=== PATIENT | female | born 1970 | race African-American/Black ===

== ENCOUNTER 2017-02-08 14:32 | Emergency (ER) | payer MEDICAID, OTHER ==
[~2017-02-08] VITALS: Ht 175.3 cm; Wt 89.1 kg
[~2017-02-08 14:32] MED LIST: ADVAI100I PO; ALBU8I INH; LEXA10TA PO; MONT10TA2 PO; PRED20 PO
[2017-02-08 14:35] VITALS: BP 130/70; PULSE 80; RESP 20; TEMP 99; O2SAT 100
--- NOTE | 2017-02-08 15:03 | PD ---
Physical Exam Time Seen by Provider: 15:01 Narrative 46 y/o female here with shortness of breath, dizziness since last night. hx of asthma, endorses cough. vss. Seen at triage desk. Awaiting bed placement. Data Data Last Documented VS Vital Signs Date Time Temp Pulse Resp B/P Pulse Ox O2 Delivery O2 Flow Rate FiO2 02/08/17 14:35 99.0 80 20 130/70 100 Room Air MDM Medical Record Reviewed: Yes Supervised Visit with TORITO: Niles Velásquez February 08, 2017 15:03
== END 2017-02-08 19:05 | disposition left against medical advice (07) ==
LOC: NED 14:32
DX: R06.02 Shortness of breath (principal); R42 Dizziness and giddiness; R05 Cough; Z87.09 Personal history of other diseases of the respiratory system
CPT/HCPCS: 99284

== ENCOUNTER 2017-11-12 08:13 | Emergency (ER) | payer MEDICAID ==
[~2017-11-12] VITALS: Ht 175.3 cm; Wt 79.5 kg
[2017-11-12 08:18] VITALS: BP 134/79; PULSE 94; RESP 20; TEMP 98.3; O2SAT 100
[2017-11-12] MEDS ORDERED: VENTAER INH (08:36)
--- NOTE | 2017-11-12 08:38 | PD ---
HPI Chief Complaint: Cold / Flu Symptoms Time Seen by Provider: 08:24 Travel History International Travel<30 days: No Contact w/Intl Traveler<30days: No Traveled to known affect area: No History of Present Illness HPI 47-year-old -Armenian female presents emergency department 3 day history of flulike symptoms with generalized body aches, hot and cold, and intermittent diarrhea. Patient denies significant cough but has had sinus congestion and headache. Patient is unsure of specific complaints of fever. She has been taking some [id number] Imodium and linda brigida for her abdominal symptoms. She has had no nausea or vomiting. She denies abdominal pain or urinary symptoms at this time. She has no known drug allergies. PFSH Past Medical History Hx Anticoagulant Therapy: No Asthma: Yes Anxiety: Yes Depression: Yes Cardiovascular Problems: No Chemotherapy: No Cerebrovascular Accident: No Diabetes: No Diminished Hearing: No Psychiatric: Yes Respiratory: Yes ?: Not LMP: SEPTEMBER 2017 Para: 3 : 1 Past Surgical History Hysterectomy: No Tonsillectomy: Yes (ADENOIDS) Other Surgery: Yes (TUMORS REMOVED UNDER ARMPITS) Social History Alcohol Use: Yes (OCCASSIONAL) Tobacco Use: No Substance Use: Yes (MARIJUANA) Allergies-Medications (Allergen,Severity, Reaction): Coded Allergies: No Known Allergies (Unverified Adverse Reaction, Unknown, 11/12/17) Reported Meds & Prescriptions Reported Meds & Active Scripts Active Reported Ventolin Hfa 18 GM Inh (Albuterol Sulfate) 90 Mcg/Act Aer 2 Puff INH Q4-6H PRN Review of Systems Except as stated in HPI: all other systems reviewed are Neg General / Constitutional: Positive: Chills, No: Fever Eyes: No: Visual changes HENT: Positive: Headaches, Rhinitis, Rhinorrhea, Congestion, No: Vertigo, Lightheadedness, Sore Throat, Nosebleed, Neck Stiffness, Neck Pain, Dental Difficulties, Earache Cardiovascular: No: Chest Pain or Discomfort Respiratory: No: Cough, Shortness of Breath, Wheezing Gastrointestinal: Positive: Diarrhea, No: Nausea, Vomiting, Abdominal Pain Genitourinary: No: Dysuria Musculoskeletal: Positive: Myalgias, No: Pain Skin: No Rash Neurologic: No: Weakness Psychiatric: No: Depression Endocrine: No: Polydipsia Hematologic/Lymphatic: No: Easy Bruising Physical Exam Narrative GENERAL: Patient appears in no obvious distress. SKIN: Warm and dry. Normal color. Normal turgor. HEAD: Atraumatic. Normocephalic. EYES: Pupils equal and round. No scleral icterus. No injection or drainage. ENT: No nasal bleeding or discharge. Mucous membranes pink and moist. TMs are clear bilaterally. No significant sinus tenderness to percussion or palpation pharynx is unremarkable. Airways patent. NECK: Trachea midline. Supple and nontender. CARDIOVASCULAR: Regular rate and rhythm. RESPIRATORY: No accessory muscle use. Clear to auscultation. Breath sounds equal bilaterally. GASTROINTESTINAL: Abdomen soft, non-tender, nondistended. Hepatic and splenic margins not palpable. MUSCULOSKELETAL: Extremities without clubbing, cyanosis, or edema. No obvious deformities. NEUROLOGICAL: Awake and alert. No obvious cranial nerve deficits. Motor grossly within normal limits. Five out of 5 muscle strength in the arms and legs. Normal speech. PSYCHIATRIC: Appropriate mood and affect; insight and judgment normal. Data Data Last Documented VS Vital Signs Date Time Temp Pulse Resp B/P (MAP) Pulse Ox O2 Delivery O2 Flow Rate FiO2 11/12/17 08:18 98.3 94 20 134/79 (97) 100 Room Air Orders Orders Influenzae A/B Antigen (11/12/17 08:26) MDM Medical Decision Making Medical Screen Exam Complete: Yes Emergency Medical Condition: Yes Differential Diagnosis Viral syndrome. Upper respiratory infection. Influenza. Gastroenteritis. Narrative Course Patient is medically stable at time of exam. Rapid influenza sent to the lab. Rapid influenza is negative. Patient is felt to have a resolving gastroenteritis. Patient is felt to be able to return to work tomorrow Patient should rest, push fluids, antidiarrheals as needed and follow if worsening Diagnosis Primary Impression: Gastroenteritis and colitis, viral Referrals: Primary Care Physician Patient Instructions: Acute Diarrhea (ED), General Instructions Departure Forms: Work Release Enter return to work date: Nov 13, 2017 Additional Instructions: Rapid influenza is negative. Patient is felt to have a resolving gastroenteritis. Patient is felt to be able to return to work tomorrow Patient should rest, push fluids, antidiarrheals as needed and follow if worsening Med/Other Pt SpecificInfo: No Meds Exist/No RX given Disposition: DISCHARGE HOME Condition: Stable Byron Kent Nov 12, 2017 08:38
== END 2017-11-12 09:17 | disposition home or self-care (01) ==
LOC: NEPD 08:13
DX: A08.4 Viral intestinal infection, unspecified (principal); J45.909 Unspecified asthma, uncomplicated; F32.9 Major depressive disorder, single episode, unspecified
CPT/HCPCS: 87804; 99283

== ENCOUNTER 2017-12-12 13:39 | Emergency (ER) | payer MEDICAID ==
[~2017-12-12] VITALS: Ht 175.3 cm; Wt 77.0 kg
[~2017-12-12 13:39] MED LIST changes: -ADVAI100I PO; -ALBU8I INH; -LEXA10TA PO; -MONT10TA2 PO; -PRED20 PO; +VENTAER INH
[2017-12-12 14:06] VITALS: BP 123/67; PULSE 102; RESP 25; TEMP 98.5; O2SAT 100
--- NOTE | 2017-12-12 15:35 | PD ---
HPI Chief Complaint: Respiratory Distress Time Seen by Provider: 15:35 Travel History International Travel<30 days: No Contact w/Intl Traveler<30days: No Traveled to known affect area: No History of Present Illness HPI 47-year-old female came to the emergency room with history of sudden onset of cough while she went to use the restroom after her moravian. This started at 1 PM. Patient tried to use her inhaler but realized that the medication had finished. She couldn't stop coughing and decided to come to the emergency room. She does not have a primary care. One of her friends did lend her albuterol to the patient and patient took 2 puffs after which she is feeling little better although she still coughing. Vital signs are relatively stable. Does have history of asthma. No history of chest tightness or chest pain. PFSH Past Medical History Narrative Medical List of her past medical, surgical, social and family history is reviewed from the nursing note. Hx Anticoagulant Therapy: No Asthma: Yes Anxiety: Yes Depression: Yes Cardiovascular Problems: No Chemotherapy: No Cerebrovascular Accident: No Diabetes: No Diminished Hearing: No Psychiatric: Yes Respiratory: Yes (ASTHMA) ?: Not Para: 3 : 1 Past Surgical History Hysterectomy: No Tonsillectomy: Yes (ADENOIDS) Other Surgery: Yes (TUMORS REMOVED UNDER ARMPITS) Social History Alcohol Use: Yes (OCCASSIONAL) Tobacco Use: No Substance Use: Yes (MARIJUANA) Allergies-Medications (Allergen,Severity, Reaction): Coded Allergies: No Known Allergies (Unverified Adverse Reaction, Unknown, 11/12/17) Comments List of her allergies reviewed from the nursing note. Reported Meds & Prescriptions Reported Meds & Active Scripts Active Ventolin Hfa 18 GM Inh (Albuterol Sulfate) 90 Mcg/Act Aer 2 Puff INH Q4-6H PRN Reported Ventolin Hfa 18 GM Inh (Albuterol Sulfate) 90 Mcg/Act Aer 2 Puff INH Q4-6H PRN Narrative Medication List of her home medications reviewed from the nursing note. Review of Systems Except as stated in HPI: all other systems reviewed are Neg Respiratory: Positive: Cough Physical Exam Narrative GENERAL: Awake, alert, mild distress SKIN: Focused skin assessment warm/dry. HEAD: Atraumatic. Normocephalic. EYES: Pupils equal and round. No scleral icterus. No injection or drainage. ENT: No nasal bleeding or discharge. Mucous membranes pink and moist. Pharynx is slightly erythematous. No swelling NECK: Trachea midline. No JVD. No stridor CARDIOVASCULAR: Regular rate and rhythm. No murmur appreciated. RESPIRATORY: No accessory muscle use. Clear to auscultation. Breath sounds equal bilaterally. GASTROINTESTINAL: Abdomen soft, non-tender, nondistended. Hepatic and splenic margins not palpable. MUSCULOSKELETAL: No obvious deformities. No clubbing. No cyanosis. No edema. NEUROLOGICAL: Awake and alert. No obvious cranial nerve deficits. Motor grossly within normal limits. Normal speech. PSYCHIATRIC: Appropriate mood and affect; insight and judgment normal. Data Data Last Documented VS Vital Signs Date Time Temp Pulse Resp B/P (MAP) Pulse Ox O2 Delivery O2 Flow Rate FiO2 12/12/17 15:38 18 98 Room Air 12/12/17 14:06 98.5 102 123/67 (85) Orders Orders Albuterol Neb (Albuterol Neb) (12/12/17 16:00) Acetaminophen (Tylenol) (12/12/17 16:00) Ed Discharge Order (12/12/17 15:49) MDM Medical Decision Making Medical Screen Exam Complete: Yes Emergency Medical Condition: Yes Medical Record Reviewed: Yes Differential Diagnosis Cough variant asthma Narrative Course 3:55 PM patient will be given a dose of albuterol and discharged home. I'll give her the prescription for albuterol to go home with. Procedures EKG Prior to Arrival: No Diagnosis Primary Impression: Cough Additional Impression: Asthma attack Qualified Codes: J45.41 - Moderate persistent asthma with (acute) exacerbation Referrals: Primary Care Physician Additional Instructions: Use 2 puffs of the inhaler every 6 hours still symptoms subside. You should not be smoking since it'll make his symptoms worse. Return to ER if condition worsens or any other new concerns. Med/Other Pt SpecificInfo: Prescription(s) given Scripts Albuterol 18 GM Inh (Ventolin Hfa 18 GM Inh) 90 Mcg/Act Aer 2 PUFF INH Q4-6H Y for SHORTNESS OF BREATH, #1 INHALER 0 Refills Prov: Rama Roman MD 12/12/17 Disposition: 01 DISCHARGE HOME Condition: Stable Rama Roman MD Dec 12, 2017 15:35
[2017-12-12] MEDS ORDERED: VENTAER INH (15:51)
[2017-12-12] MEDS ORDERED: ACETAMINOPHEN 325 MG TAB PO ONE (16:00)
[2017-12-12] MEDS ORDERED: RESP: ALBUTEROL 2.5 MG/3 ML NEB (SCH) NEB ONE (16:00)
== END 2017-12-12 16:36 | disposition home or self-care (01) ==
LOC: NEPD 13:39
DX: J45.41 Moderate persistent asthma with (acute) exacerbation (principal); F12.90 Cannabis use, unspecified, uncomplicated
CPT/HCPCS: 94664; 99283; J7613